=== PATIENT | female | born 1940 | race Caucasian/White ===

== ENCOUNTER 2016-02-27 01:05 | Emergency (ER) | payer OTHER ==
[~2016-02-27] VITALS: Ht 170.2 cm; Wt 80.2 kg
[~2016-02-27 01:05] MED LIST: ACETAMINOPHEN-1 EAC1 PO; ALUPENT PO; AMLODIPINE BESYL5 MG PO; ASPIR-LOW81 MG; ASPIR-LOW81 MG PO; ASPIR-TRIN325 M1 PO; ATIVAN1 MG PO; BACTRIM,SEPT1 TABLET PO; COLACE100 MG PO; CYCLOBENZAPRINE10 MG PO; DAILY VALUE1 EACH PO; DOXYCYCLINE HY100 MG PO; KEFLEX500 MG PO; LIDODERM 5% P1 PATCH TD; LOPRESSOR25 MG PO; LORAZEPAM1 MG PO; MICRO-K,K-TAB,10 MEQ PO; NAPROSYN500 MG PO; NITROSTAT,NITR0.4 M1 SL; NITROSTAT0.4 MG SL; PANTOPRAZOLE SO40 MG PO; PERCOCET 5/31 TABLET PO; PLAVIX75 MG PO; PREDNISONE20 MG PO; PROTONIX40 MG PO; PROVENTIL HFA6.7 GM IH; PROVENTIL,2.5 MG/0.5 IH; Protonix PO; Proventil,Ventolin H IH; ROXICET 5-3251 EACH PO; SIMVASTATIN PO; SIMVASTATIN40 MG PO; TOPROL XL6.25 MG PO; TRANSDERM-NITR0.4 MG; TYLENOL WITH C1 EACH PO; ULTRAM50 MG PO; ZOFRAN4 MG PO
[2016-02-27] MEDS ORDERED: FUROSEMIDE20 MG PO (01:34)
[2016-02-27] MEDS ORDERED: PROVENTIL HFA6.7 GM IH (01:35)
[2016-02-27 01:39] LABS: HEMATOCRIT 27.7 % (36.0-46.0); MCH 23.1 PG (29.0-34.0); MCHC 28.9 G/DL (30.0-36.0); MCV 79.8 FL (83-99); MEAN PLAT.VOLUME 8.6 uM^3 (9.5-12.4); PLATELET COUNT 453 K/uL (156-360); RBC DIS.WIDTH-CV 15.2 % (11.8-14.6); RBC DIS.WIDTH-SD 42.6 % (39-53); RED BLOOD COUNT 3.47 M/uL (3.80-5.20); WHITE BLOOD COUNT 7.9 K/uL (4.1-10.2)
[2016-02-27 01:41] LABS: BASOPHIL COUNT 0.1 K/uL (0-0.1); EOSINOPHIL (%) 0 % (0-5); IMMATURE GRANULOCYTE (%) 0.1 % (0.0-0.7); IMMATURE GRANULOCYTE COUNT 0.1 K/uL; LYMPHOCYTE COUNT 1.5 K/uL (1.0-2.8); MONOCYTE (%) 6.4 % (3-12); MONOCYTE COUNT 0.5 K/uL (0-0.8); NEUTROPHIL (%) 74.2 % (45-76); NEUTROPHIL COUNT 5.8 K/uL (1.8-6.4)
[2016-02-27 01:50] LABS: CHLORIDE 108 mEq/L (99-109); SODIUM 141 mEq/L (136-147)
[2016-02-27 01:52] LABS: GLUCOSE 128 mg/dL (70-99)
[2016-02-27 01:53] LABS: ANION GAP 10 MEQ/L (2-14)
[2016-02-27 01:54] LABS: TOTAL BILIRUBIN 0.2 mg/dL (0.0-1.0)
[2016-02-27 01:55] LABS: ALKALINE PHOSPHATASE 67 IU/L (3-129)
[2016-02-27 01:56] LABS: GFR ESTIMATE (CALCULATED) 51 mL/min/
[2016-02-27 01:57] LABS: UREA NITROGEN (BUN) 29 mg/dL (9-23)
[2016-02-27 01:59] LABS: LIPASE 59 U/L (1.0-51.0)
[2016-02-27 02:12] LABS: ADD MIUA? YES; BILIRUBIN NEGATIVE; BLOOD LARGE; COLOR YELLOW ((YELLOW)); GLUCOSE (STRIP) NEGATIVE; KETONES NEGATIVE; LEUKOCYTES SMALL; NITRITE NEGATIVE; PH, URINE 5.5 (5-8); PROTEIN (STRIP) 30; SPECIFIC GRAVITY 1.029 (1.000-1.030); UROBILINOGEN 0.2 MG/DL (0.2-1.0)
[2016-02-27 02:43] LABS: RED BLOOD CELLS 20-30 /HPF (0-5)
[2016-02-27 02:45] LABS: EPITHELIAL CELLS RARE; MUCUS NONE SEEN
[2016-02-27 02:46] LABS: BACTERIA NONE SEEN; CALCIUM OXALATE CRYSTALS 2+; CASTS NONE SEEN /LPF; CRYSTALS PRESENT; UCUL ADDED? NO; URIC ACID CRYSTALS 2+
[2016-02-27] MEDS ORDERED: FLOMAX0.4 MG PO (03:22)
[2016-02-27] MEDS ORDERED: ZOFRAN ODT8 MG PO (03:22)
[2016-02-27] MEDS ORDERED: LORTAB 5-325 M1 EACH PO (03:22)
[2016-02-27] MEDS ORDERED: CIPRO500 MG PO (03:22)
[2016-02-27 05:02] VITALS: BP 142/93
== END 2016-02-27 05:03 | disposition home or self-care (01) ==
LOC: EME → EDBD 01:05 → EME 01:05
PROVIDERS: Emergency Medicine
DX: N20.0 Calculus of kidney (principal); N39.0 Urinary tract infection, site not specified; I10 Essential (primary) hypertension; I25.2 Old myocardial infarction; Z87.442 Personal history of urinary calculi; Z95.5 Presence of coronary angioplasty implant and graft; Z88.2 Allergy status to sulfonamides; Z88.0 Allergy status to penicillin
CPT/HCPCS: 74176; 80053; 81003; 83690; 85025; 85027; 87086; 99281; 99284; J0744; J1885; J2270; J2405; J7030

== ENCOUNTER 2016-05-14 12:53 | Inpatient (IN) | payer OTHER ==
[2016-05-14] VITALS (11 sets, daily range): BP systolic 111–138; BP diastolic 54–82
[~2016-05-14] VITALS: Ht 167.6 cm; Wt 80.4 kg
[~2016-05-14 12:53] MED LIST changes: +CIPRO500 MG PO; +FLOMAX0.4 MG PO; +FUROSEMIDE20 MG PO; +LORTAB 5-325 M1 EACH PO; +ZOFRAN ODT8 MG PO
[2016-05-14 14:20] LABS: CHLORIDE 105 mEq/L (99-109); POTASSIUM 4.3 mEq/L (3.7-5.4); SODIUM 137 mEq/L (136-147)
[2016-05-14 14:22] LABS: GLUCOSE 114 mg/dL (70-99); HEMATOCRIT 17.8 % (36.0-46.0); MCH 18.3 PG (29.0-34.0); MCHC 25.3 G/DL (30.0-36.0); MCV 72.4 FL (83-99); NRBC (%) 0.7 /100 WBC (0-0); PLATELET COUNT 595 K/uL (156-360); RBC DIS.WIDTH-CV 17.2 % (11.8-14.6); RBC DIS.WIDTH-SD 45.3 % (39-53); RED BLOOD COUNT 2.46 M/uL (3.80-5.20)
[2016-05-14 14:24] LABS: ANION GAP 10 MEQ/L (2-14)
[2016-05-14 14:26] LABS: GFR ESTIMATE (CALCULATED) 51 mL/min/
[2016-05-14 14:27] LABS: UREA NITROGEN (BUN) 15 mg/dL (9-23)
[2016-05-14 14:31] LABS: TROP-I INTERPRETATION NEGATIVE; TROPONIN-I 0.02 ng/mL (0.0-0.30)
[2016-05-14] MEDS ORDERED: VENTOLIN HFA18 GM IH (15:08)
[2016-05-14] MEDS ORDERED: K-TAB ER8 MEQ PO (15:09)
[2016-05-14] MEDS ORDERED: NITROSTAT0.4 MG SL (15:09)
[2016-05-14] MEDS ORDERED: SIMVASTATIN40 MG PO (15:09)
[2016-05-14] MEDS ORDERED: FUROSEMIDE20 MG PO (15:09)
[2016-05-14] MEDS ORDERED: MELOXICAM15 MG PO (15:10)
[2016-05-14] MEDS ORDERED: TYLENOL EXTRA500 MG PO (15:10)
[2016-05-14] MEDS ORDERED: PROTONIX40 MG PO (15:10)
[2016-05-14] MEDS ORDERED: PERCOCET 5/31 TABLET PO (15:10)
[2016-05-14 15:36] LABS: TOTAL BILIRUBIN 0.4 mg/dL (0.0-1.0)
[2016-05-14 15:38] LABS: ALKALINE PHOSPHATASE 51 IU/L (3-129)
[2016-05-14 15:40] LABS: DIRECT BILIRUBIN 0.2 mg/dL (0.0-0.3)
[2016-05-14 15:54] LABS: HEMATOCRIT 16.6 % (36.0-46.0); MCV 72.2 FL (83-99)
[2016-05-14 16:04] LABS: D-DIMER ELISA 1.88 mg/L FEU (< 0.57)
[2016-05-14 16:48] LABS: IMM.RETIC FRACTION 39.5 % (3-19); RETIC HGB EQUIVALENT 13.8 (28-36); RETICULOCYTE COUNT 3.1 % (0.5-1.8)
[2016-05-14 17:26] LABS: IRON < 10 MCG/DL (35-150)
[2016-05-14 18:01] LABS: FERRITIN 4 NG/ML (10-291)
[2016-05-14 20:33] LABS: TROP-I INTERPRETATION NEGATIVE; TROPONIN-I 0.02 ng/mL (0.0-0.30)
[2016-05-14 23:14] LABS: HEMATOCRIT 25.7 % (36.0-46.0)
[2016-05-14 23:15] LABS: MCV 77.4 FL (83-99)
[2016-05-15] VITALS (8 sets, daily range): BP systolic 110–130; BP diastolic 54–60
[2016-05-15 02:32] LABS: TROP-I INTERPRETATION NEGATIVE; TROPONIN-I 0.02 ng/mL (0.0-0.30)
[2016-05-15 09:42] LABS: HEMATOCRIT 28.7 % (36.0-46.0); MCV 77.4 FL (83-99); NRBC (%) 0.7 /100 WBC (0-0); RBC DIS.WIDTH-CV 18.1 % (11.8-14.6); RBC DIS.WIDTH-SD 50.6 % (39-53); WHITE BLOOD COUNT 6.9 K/uL (4.1-10.2)
[2016-05-15 09:50] LABS: ALKALINE PHOSPHATASE 49 IU/L (3-129); ANION GAP 12 MEQ/L (2-14); CHLORIDE 102 MEQ/L (99-109); GFR ESTIMATE (CALCULATED) 51 mL/min/; GLUCOSE 115 mg/dL (70-99); POTASSIUM 3.3 MEQ/L (3.7-5.4); SAMPLE HEMOLYSIS CHECK 0; SAMPLE ICTERIC CHECK 0; SAMPLE LIPEMIA CHECK 0; SODIUM 138 MEQ/L (136-147); TOTAL BILIRUBIN 0.8 MG/DL (0.0-1.0); UREA NITROGEN (BUN) 13 mg/dL (9-23)
[2016-05-15 10:04] LABS: MCH 23.2 PG (29.0-34.0); RED BLOOD COUNT 3.71 M/uL (3.80-5.20)
[2016-05-15 10:05] LABS: TROP-I INTERPRETATION NEGATIVE; TROPONIN-I < 0.01 ng/mL (0.0-0.30)
[2016-05-15 10:29] LABS: EOSINOPHIL (%) 0 % (0-5); IMMATURE GRANULOCYTE (%) 0.3 % (0.0-0.7); INSTRUMENT ABS NEUTROPHIL CT 5.2 K/uL; MEAN PLAT.VOLUME 8.8 uM^3 (9.5-12.4); MONOCYTE (%) 8.9 % (3-12); MONOCYTE COUNT 0.6 K/uL (0-0.8); NEUTROPHIL (%) 76.3 % (45-76); NEUTROPHIL COUNT 5.2 K/uL (1.8-6.4); PLATELET COUNT ND K/uL (156-360)
[2016-05-15 14:34] LABS: MAGNESIUM 2.1 mg/dl (1.3-2.7)
[2016-05-15 15:20] LABS: HEMATOCRIT 27.1 % (36.0-46.0); MCV 78.1 FL (83-99)
[2016-05-15 20:53] LABS: MCV 78.2 FL (83-99)
[2016-05-15 23:06] LABS: HEMATOCRIT 27.4 % (36.0-46.0); MCV 77.8 FL (83-99)
[2016-05-16 00:26] VITALS: BP 111/55
[2016-05-16 06:23] VITALS: BP 122/50
[2016-05-16 07:50] VITALS: BP 120/88
[2016-05-16 09:32] LABS: HEMATOCRIT 29.7 % (36.0-46.0); MCHC 29.3 G/DL (30.0-36.0); MCV 78.4 FL (83-99); MEAN PLAT.VOLUME 9.3 uM^3 (9.5-12.4); NRBC (%) 1.1 /100 WBC (0-0); RBC DIS.WIDTH-CV 18.6 % (11.8-14.6); RBC DIS.WIDTH-SD 52.8 % (39-53); RED BLOOD COUNT 3.79 M/uL (3.80-5.20); WHITE BLOOD COUNT 6.5 K/uL (4.1-10.2)
[2016-05-16 10:10] LABS: ANION GAP 13 MEQ/L (2-14); CHLORIDE 103 MEQ/L (99-109); GFR ESTIMATE (CALCULATED) 57 mL/min/; GLUCOSE 124 mg/dL (70-99); POTASSIUM 3.9 MEQ/L (3.7-5.4); SAMPLE HEMOLYSIS CHECK 0; SAMPLE ICTERIC CHECK 0; SAMPLE LIPEMIA CHECK 0; SODIUM 140 MEQ/L (136-147); UREA NITROGEN (BUN) 16 mg/dL (9-23)
[2016-05-16 12:22] VITALS: BP 129/71
[2016-05-16 16:19] VITALS: BP 145/67
[2016-05-16 19:15] VITALS: BP 133/62
[2016-05-17 00:40] VITALS: BP 103/57
[2016-05-17 05:21] VITALS: BP 122/58
[2016-05-17 10:17] LABS: HEMATOCRIT 29.8 % (36.0-46.0); MCH 23.3 PG (29.0-34.0); MCHC 29.2 G/DL (30.0-36.0); MCV 79.7 FL (83-99); MEAN PLAT.VOLUME 9.6 uM^3 (9.5-12.4); NRBC (%) 0.3 /100 WBC (0-0); RBC DIS.WIDTH-CV 19.8 % (11.8-14.6); RBC DIS.WIDTH-SD 57.1 % (39-53); RED BLOOD COUNT 3.74 M/uL (3.80-5.20)
[2016-05-17 10:19] LABS: PLATELET COUNT 303 K/uL (156-360)
[2016-05-17 10:23] LABS: ANION GAP 10 MEQ/L (2-14); CHLORIDE 102 MEQ/L (99-109); GFR ESTIMATE (CALCULATED) 57 mL/min/; GLUCOSE 122 mg/dL (70-99); POTASSIUM 3.3 MEQ/L (3.7-5.4); SAMPLE HEMOLYSIS CHECK 0; SAMPLE ICTERIC CHECK 0; SAMPLE LIPEMIA CHECK 0; SODIUM 139 MEQ/L (136-147); UREA NITROGEN (BUN) 21 mg/dL (9-23)
[2016-05-17 12:00] VITALS: BP 111/54
[2016-05-17 20:03] VITALS: BP 112/59
[2016-05-18 00:36] VITALS: BP 102/52
[2016-05-18 04:58] VITALS: BP 102/69
[2016-05-18 07:28] VITALS: BP 115/64
[2016-05-18 09:36] LABS: MCH 23.1 PG (29.0-34.0); MCHC 28.7 G/DL (30.0-36.0); MCV 80.5 FL (83-99); PLATELET COUNT 324 K/uL (156-360); RBC DIS.WIDTH-CV 20.3 % (11.8-14.6); RBC DIS.WIDTH-SD 59.1 % (39-53); RED BLOOD COUNT 3.85 M/uL (3.80-5.20); WHITE BLOOD COUNT 8.4 K/uL (4.1-10.2)
[2016-05-18 09:59] LABS: ANION GAP 9 MEQ/L (2-14); CHLORIDE 102 MEQ/L (99-109); GFR ESTIMATE (CALCULATED) 57 mL/min/; GLUCOSE 180 mg/dL (70-99); POTASSIUM 3.6 MEQ/L (3.7-5.4); SAMPLE HEMOLYSIS CHECK 0; SAMPLE ICTERIC CHECK 0; SAMPLE LIPEMIA CHECK 0; SODIUM 140 MEQ/L (136-147); UREA NITROGEN (BUN) 23 mg/dL (9-23)
[2016-05-18 12:30] VITALS: BP 124/69
[2016-05-18 15:37] VITALS: BP 123/76
[2016-05-18 20:03] VITALS: BP 126/69
[2016-05-19] VITALS (7 sets, daily range): BP systolic 97–136; BP diastolic 53–69
[2016-05-20 04:00] VITALS: BP 122/61
[2016-05-20 07:53] VITALS: BP 114/56
[2016-05-20 11:21] VITALS: BP 117/62
[2016-05-20 12:23] LABS: POC NON-PRINT COM 1 ND
[2016-05-20 15:12] LABS: HEMATOCRIT 31.2 % (36.0-46.0); MCH 22.9 PG (29.0-34.0); MCHC 29.2 G/DL (30.0-36.0); MCV 78.6 FL (83-99); MEAN PLAT.VOLUME 9.4 uM^3 (9.5-12.4); PLATELET COUNT 356 K/uL (156-360); RBC DIS.WIDTH-CV 19.7 % (11.8-14.6); RBC DIS.WIDTH-SD 56.2 % (39-53); RED BLOOD COUNT 3.97 M/uL (3.80-5.20); WHITE BLOOD COUNT 7.7 K/uL (4.1-10.2)
[2016-05-20 15:19] LABS: CHLORIDE 102 mEq/L (99-109); POTASSIUM 3.5 mEq/L (3.7-5.4); SODIUM 139 mEq/L (136-147)
[2016-05-20 15:22] LABS: ANION GAP 11 MEQ/L (2-14)
[2016-05-20 15:25] LABS: GFR ESTIMATE (CALCULATED) 51 mL/min/
[2016-05-20 15:26] LABS: UREA NITROGEN (BUN) 24 mg/dL (9-23)
[2016-05-20 15:27] LABS: GLUCOSE 108 mg/dL (70-99)
[2016-05-20 17:00] VITALS: BP 136/67
[2016-05-20 19:30] VITALS: BP 133/66
[2016-05-21] VITALS (7 sets, daily range): BP systolic 90–128; BP diastolic 51–74
[2016-05-21 07:08] LABS: ANION GAP 10 MEQ/L (2-14); CHLORIDE 106 MEQ/L (99-109); GFR ESTIMATE (CALCULATED) 57 mL/min/; GLUCOSE 99 mg/dL (70-99); POTASSIUM 3.8 MEQ/L (3.7-5.4); SAMPLE HEMOLYSIS CHECK 0; SAMPLE ICTERIC CHECK 0; SAMPLE LIPEMIA CHECK 0; SODIUM 143 MEQ/L (136-147); UREA NITROGEN (BUN) 26 mg/dL (9-23)
[2016-05-21 07:14] LABS: HEMATOCRIT 29.1 % (36.0-46.0); MCHC 29.2 G/DL (30.0-36.0); MCV 78.9 FL (83-99); RBC DIS.WIDTH-SD 57.2 % (39-53); RED BLOOD COUNT 3.69 M/uL (3.80-5.20); WHITE BLOOD COUNT 5.5 K/uL (4.1-10.2)
[2016-05-21 07:58] LABS: MEAN PLAT.VOLUME 9.8 uM^3 (9.5-12.4); PLAT.SUFFICIENCY ADEQUATE; PLATELET COUNT 337 K/uL (156-360)
[2016-05-21] MEDS ORDERED: ACIDOPHILUS1 EAC1 PO (16:00)
[2016-05-21] MEDS ORDERED: FERROUS SULFAT325 MG PO (16:00)
[2016-05-21] MEDS ORDERED: CLEOCIN150 MG PO (16:00)
[2016-05-22 04:25] VITALS: BP 97/55
[2016-05-22 06:58] LABS: HEMATOCRIT 28.7 % (36.0-46.0); MCH 22.8 PG (29.0-34.0); MCHC 28.2 G/DL (30.0-36.0); MCV 80.8 FL (83-99); MEAN PLAT.VOLUME 9.5 uM^3 (9.5-12.4); PLATELET COUNT 381 K/uL (156-360); RBC DIS.WIDTH-CV 20.5 % (11.8-14.6); RBC DIS.WIDTH-SD 59.8 % (39-53); RED BLOOD COUNT 3.55 M/uL (3.80-5.20); WHITE BLOOD COUNT 4.5 K/uL (4.1-10.2)
[2016-05-22 07:16] LABS: EOSINOPHIL (%) 0 % (0-5); IMMATURE GRANULOCYTE (%) 0.2 % (0.0-0.7); INSTRUMENT ABS NEUTROPHIL CT 2.8 K/uL; LYMPHOCYTE COUNT 1.2 K/uL (1.0-2.8); MONOCYTE (%) 9.7 % (3-12); MONOCYTE COUNT 0.4 K/uL (0-0.8); NEUTROPHIL (%) 62.7 % (45-76); NEUTROPHIL COUNT 2.8 K/uL (1.8-6.4)
[2016-05-22 09:00] VITALS: BP 120/65
== END 2016-05-22 13:07 | disposition home health service (06) | DRG 378 ==
LOC: EME 12:53 → 4EAST 15:33 → EDOF 15:33 → 4EAST 20:54
PROVIDERS: Emergency Medicine; Hospitalist; Internal Medicine Gastroenterology; Physician Assistant; Student in an Organized Health Care Education/Training Program
PROC: 30233N1 Transfusion of Nonautologous Red Blood Cells into Peripheral Vein, Percutaneous Approach (ICD-10-PCS; 2016-05-14)
PROC: 0DB78ZX Excision of Stomach, Pylorus, Via Natural or Artificial Opening Endoscopic, Diagnostic (ICD-10-PCS; principal; 2016-05-21)
DX: K92.2 Gastrointestinal hemorrhage, unspecified (principal); L03.115 Cellulitis of right lower limb; D64.9 Anemia, unspecified; I25.10 Atherosclerotic heart disease of native coronary artery without angina pectoris; I10 Essential (primary) hypertension; K25.9 Gastric ulcer, unspecified as acute or chronic, without hemorrhage or perforation; K29.70 Gastritis, unspecified, without bleeding; E78.5 Hyperlipidemia, unspecified; J45.909 Unspecified asthma, uncomplicated; E87.6 Hypokalemia; M81.0 Age-related osteoporosis without current pathological fracture; G89.29 Other chronic pain; K44.9 Diaphragmatic hernia without obstruction or gangrene; F41.9 Anxiety disorder, unspecified; E66.9 Obesity, unspecified; Z90.49 Acquired absence of other specified parts of digestive tract; R60.0 Localized edema; Z95.5 Presence of coronary angioplasty implant and graft; Z87.891 Personal history of nicotine dependence
CPT/HCPCS: 71020; 78580; 80048; 80053; 80069; 80076; 81003; 82272; 82607; 82728; 82746; 83540; 83735; 83880; 84466; 84484; 85014; 85018; 85025; 85027; 85045; 85379; 86850; 86900; 86901; 86920; 88305; 88342 TC; 93005; 93306; 93970; 94010; 94640; 94640 76; 94799; 99202; 99281; 99285; A9540; C9113; J1940; J3010; J7509; P9016